=== PATIENT | male | born 1975 | race Caucasian/White ===

== ENCOUNTER 2019-04-14 18:47 | Observation (INO) | payer BC ==
[2019-04-14] MEDS ORDERED: ASPIRIN 81 MG PO STA (19:09)
[2019-04-14] MEDS ORDERED: NITROGLYCERIN OINT 1 INCH/GM PACKET TOPICAL STA (19:09)
--- NOTE | 2019-04-14 19:11 | ED ---
Chest Pain HPI - General Chief Complaint: Chest Pain Stated Complaint: chest and left arm tightness and pain Source: patient Mode of arrival: ambulatory Limitations: no limitations - Related Data Home Medications Medication Instructions Recorded Confirmed Lansoprazole [Prevacid] 30 mg PO DAILY 04/14/19 04/14/19 Allergies Allergy/AdvReac Type Severity Reaction Status Date / Time No Known Allergies Allergy Verified 04/14/19 19:22 Review of Systems ROS Statement: Those systems with pertinent positive or pertinent negative responses have been documented in the HPI. ROS Other: All systems not noted in ROS Statement are negative. Past Medical History Past Medical History: GERD/Reflux History of Any Multi-Drug Resistant Organisms: None Reported Past Surgical History: No Surgical Hx Reported Past Psychological History: No Psychological Hx Reported Smoking Status: Never smoker Past Alcohol Use History: Rare Past Drug Use History: None Reported Course Vital Signs 04/14/19 18:52 Temperature 98.4 F Pulse Rate 75 Respiratory 18 Rate Blood Pressure 147/93 O2 Sat by Pulse 99 Oximetry Disposition Referrals: Yusef Corrales DO [Primary Care Provider] - 1-2 days
--- NOTE | 2019-04-14 19:28 | ED ---
Chest Pain HPI - General Chief Complaint: Chest Pain Stated Complaint: chest and left arm tightness and pain Time Seen by Provider: 04/14/19 19:04 Source: patient Mode of arrival: ambulatory Limitations: no limitations - History of Present Illness Initial Comments: This 43-year-old white male presents with a complaint of some chest pain. He describes it as a bilateral chest pressure which came on last night. He states that it seems radiate into his left biceps region as well as his neck. He denies any shortness of breath. He denies any leg pain or swelling or history of DVT or PE. He denies any known previous cardiac history. He has never had a stress test or heart catheterization. He denies any hypertension or hypercholesterolemia. He does state that he has a strong family history of previous cardiac disease. His 3 uncles apparently had myocardial infarctions and/or stents in their 40s. No other complaints or modifying factors. - Related Data Home Medications Medication Instructions Recorded Confirmed Lansoprazole [Prevacid] 30 mg PO DAILY 04/14/19 04/14/19 Allergies Allergy/AdvReac Type Severity Reaction Status Date / Time No Known Allergies Allergy Verified 04/14/19 19:22 Review of Systems ROS Statement: Those systems with pertinent positive or pertinent negative responses have been documented in the HPI. ROS Other: All systems not noted in ROS Statement are negative. Past Medical History Past Medical History: GERD/Reflux History of Any Multi-Drug Resistant Organisms: None Reported Past Surgical History: No Surgical Hx Reported Past Psychological History: No Psychological Hx Reported Smoking Status: Never smoker Past Alcohol Use History: Rare Past Drug Use History: None Reported General Exam - General Exam Comments Initial Comments: GENERAL: The patient is well nourished and well hydrated. VITAL SIGNS: Heart rate, blood pressure, respiratory rate reviewed as recorded in nurse's notes. EYES: Pupils are round and reactive. Extraocular movements are intact. No conjunctival / lid redness or swelling. ENT: No external evidence of injury, swelling, or ecchymosis. Airway is patent. Throat is clear. NECK: Nontender. No swelling or evidence of injury. No subcutaneous emphysema. Trachea is midline. No thyroid mass. HEART: Regular rate and rhythm. Good peripheral pulses. LUNGS/CHEST: Breath sounds clear and equal bilaterally. No rales, rhonchi, or wheezes. No ecchymosis, subcutaneous emphysema, or tenderness. ABDOMEN: Abdomen soft without tenderness. No palpable masses or organomegaly. No peritoneal signs. No abdominal wall swelling or ecchymosis. EXTREMITIES: No extremity tenderness. Normal muscle tone and function. No thoracolumbar tenderness. NEUROLOGIC: Sensation is grossly intact. Cranial nerve exam reveals face is symmetrical, tongue is midline, speech is clear. SKIN: No abrasions or ecchymosis is noted. No induration or masses noted. PSYCHIATRIC: Alert and oriented. Appropriate behavior and judgment. Limitations: no limitations General appearance: alert, in no apparent distress Course Vital Signs 04/14/19 04/14/19 18:52 19:38 Temperature 98.4 F 97.9 F Pulse Rate 75 68 Respiratory 18 18 Rate Blood Pressure 147/93 131/96 O2 Sat by Pulse 99 96 Oximetry Chest Pain [facility] - MDM The patient was seen and examined. All diagnostics were reviewed. The EKG shows a normal sinus rhythm at a rate of 73. There is no acute ST-T wave changes identified. The NJ intervals 144, QRS duration is 88, and the QTC intervals 427. An IV is established and he is watched on the site monitor. No ectopy is identified. He does receive aspirin orally as well as some Nitropaste. The chest x-ray does not show any acute processes. The laboratories unremarkable with negative troponin. He is not having any chest pain on recheck. It is felt as though he benefit from a short stay admission for further evaluation for his chest pain and to rule out acute coronary syndrome. He is agreeable. Case is discussed with Dr. Corrales and he is agreeable with admission with cardiology to evaluate patient. Disposition Clinical Impression: Chest pain, Unstable angina pectoris Disposition: ADMITTED IP TO THIS HOSP Condition: Fair Is patient prescribed a controlled substance at d/c from ED?: No Time of Disposition: 21:05 Decision Date: 04/14/19 Decision Time: 21:05
[2019-04-14 19:46] LABS: Basophils # (A) 0.1 k/uL (0-0.2); Basophils % (A) 1 %; Eosinophils # (A) 0.3 k/uL (0-0.7); Eosinophils % (A) 3 %; HCT 42.6 % (39.0-53.0); HGB 14.1 gm/dL (13.0-17.5); Lymphocytes # (A) 2.1 k/uL (1.0-4.8); Lymphocytes % (A) 23 %; MCH 28.8 pg (25.0-35.0); MCV 87.3 fL (80.0-100.0); Mean Platelet Volume 7.9; Monocytes # (A) 0.7 k/uL (0-1.0); Monocytes % (A) 8 %; Neutrophils # (A) 5.6 k/uL (1.3-7.7); Neutrophils % (A) 62 %; Platelet Count 268 k/uL (150-450); RBC 4.88 m/uL (4.30-5.90); WBC 9.1 k/uL (3.8-10.6)
--- NOTE | 2019-04-14 19:56 | XR ---
EXAMINATION: XR chest 3V DATE AND TIME: 04/14/2019 7:44 PM CLINICAL INDICATION: PHH; Chest Pain TECHNIQUE: 2 PA and a lateral view COMPARISON: None FINDINGS: The lungs are clear. The pleural spaces are negative. The cardiac silhouette is not enlarged. The remainder of the mediastinal silhouette is unremarkable. The skeletal structures and soft tissues are negative for acute findings. IMPRESSION: NO ACUTE PROCESS.
[2019-04-14 19:58] LABS: Prothrombin Time 10.4 sec (9.0-12.0)
[2019-04-14 20:02] LABS: ALT 37 U/L (21-72); AST 26 U/L (17-59); African American GFR (CKD) >90 (>60 ml/min/1.73 sqM); Albumin 4.3 g/dL (3.5-5.0); Alkaline Phosphatase 83 U/L (38-126); Anion Gap 9 mmol/L; Blood Urea Nitrogen 15 mg/dL (9-20); Calcium 9.4 mg/dL (8.4-10.2); Carbon Dioxide 30 mmol/L (22-30); Chloride 102 mmol/L (98-107); Glucose 96 mg/dL (74-99); Non-African American GFR(CKD) >90 (>60 ml/min/1.73 sqM); Potassium 4.3 mmol/L (3.5-5.1); Sodium 141 mmol/L (137-145); Total Bilirubin 0.3 mg/dL (0.2-1.3); Total Protein 7.5 g/dL (6.3-8.2)
[2019-04-14] MEDS ORDERED: NITROGLYCERIN SL TABS 0.4 MG TAB SUBLINGUAL PRN (21:06)
[2019-04-15] MEDS: NITROGLYCERIN OINT 1 INCH/GM PACKET TOPICAL SCH ×3 (00:14→11:13)
[2019-04-15] MEDS ORDERED: PANTOPRAZOLE 40 MG TABLET PO SCH (07:30)
[2019-04-15 08:19] LABS: Cholesterol 248 mg/dL (<200); HDL Cholesterol 34 mg/dL (40-60); LDL Cholesterol,Calculated 176 mg/dL (0-99); Triglycerides 190 mg/dL (<150)
[2019-04-15] MEDS ORDERED: ENOXAPARIN 40 MG/0.4 ML SYRINGE SQ SCH (09:00)
[2019-04-15] MEDS ORDERED: ASPIRIN 325 MG TAB PO SCH (09:00)
[2019-04-15] MEDS ORDERED: ACETAMINOPHEN TAB 325 MG TAB PO PRN (11:00)
--- NOTE | 2019-04-15 11:54 | ECHOF ---
Referral Reason:cp MEASUREMENTS -------- HEIGHT: 182.9 cm WEIGHT: 131.5 kg BP: 112/70 RVIDd: 2.8 cm (< 3.3) IVSd: 1.2 cm (0.6 - 1.1) LVIDd: 4.7 cm (3.9 - 5.3) LVPWd: 1.0 cm (0.6 - 1.1) IVSs: 1.4 cm LVIDs: 4.2 cm LVPWs: 1.0 cm LA Diam: 3.4 cm (2.7 - 3.8) LAESV Index (A-L): 21.00 ml/m Ao Diam: 3.3 cm (2.0 - 3.7) AV Cusp: 2.3 cm (1.5 - 2.6) LA Diam: 3.8 cm (2.7 - 3.8) MV EXCURSION: 21.866 mm (> 18.000) MV EF SLOPE: 119 mm/s (70 - 150) EPSS: 1.0 cm MV E Yimi: 0.57 m/s MV DecT: 129 ms MV A Yimi: 0.65 m/s MV E/A Ratio: 0.89 RAP: 5.00 mmHg RVSP: 23.28 mmHg FINDINGS -------- Sinus rhythm. Morbid Obesity The left ventricular size is normal. There is mild concentric left ventricular hypertrophy. Overa ll left ventricular systolic function is normal with, an EF between 55 - 60 %. The right ventricle is normal in size. The left atrial size is normal. Normal LA size by volume 22+/-6 ml/m2. The right atrial size is normal. The aortic valve is trileaflet, and appears structurally normal. No aortic stenosis or regurgitation. Mild mitral regurgitation is present. Mild tricuspid regurgitation present. There is no evidence of pulmonary hypertension. The right v entricular systolic pressure, as measured by Doppler, is 23.28mmHg. There is no pulmonic regurgitation present. The aortic root size is normal. There is no pericardial effusion. CONCLUSIONS -------- 1. Morbid Obesity 2. The left ventricular size is normal. 3. There is mild concentric left ventricular hypertrophy. 4. Overall left ventricular systolic function is normal with, an EF between 55 - 60 %. 5. The right ventricle is normal in size. 6. The left atrial size is normal. 7. Normal LA size by volume 22+/-6 ml/m2. 8. The right atrial size is normal. 9. The aortic valve is trileaflet, and appears structurally normal. No aortic stenosis or regurgitati on. 10. Mild mitral regurgitation is present. 11. Mild tricuspid regurgitation present. 12. There is no evidence of pulmonary hypertension. 13. The right ventricular systolic pressure, as measured by Doppler, is 23.28mmHg. 14. There is no pulmonic regurgitation present. 15. The aortic root size is normal. 16. There is no pericardial effusion. FOOT CUTTER: Romana Nava RDCS
--- NOTE | 2019-04-15 12:03 | P.CRDCN ---
<Marquita Bills - Last Filed: 04/15/19 11:48> History of Present Illness History of present illness: This is Marquita Bills PA-C dictating a consult on this patient The patient was interviewed and examined by me as well as by Dr. Barajas Case discussed with Dr. Barajas and he agrees with the plan of care IMPRESSION / ASSESSMENT: Atypical chest discomfort, EKG shows no ST abnormalities, troponins negative Blood Pressure slightly elevated on admission but has stated been stable since LDL elevated at 176, consistent with familial hyper cholesterolemia Former smoker PLAN: Discontinue heparin and nitro Start atorvastatin 40 mg daily with a goal of LDL reduction by 50% to less than 90 Further cardiac workup as an outpatient, follow up with Dr. Barajas/Marquita Bills/Joi Fox HPI Patient is a 43-year-old male with no significant past medical history who presented with complaints of chest discomfort. He describes the discomfort as a pressure that came on gradually throughout the day on Saturday. It radiated to his left arm. He also may have felt a little dizzy and diaphoretic, denies syncope. Denies any associated nausea vomiting or shortness of breath. The discomfort is not exertional. He has never had this discomfort before. Does occasionally get acid reflux and states the symptoms are different than his acid reflux symptoms. He has a significant family history of heart disease in his uncle is so he came in for evaluation. Upon presentation his pressure was elevated at 147/93, pulse was 75. Troponins and d-dimer were negative. EKG showed no ST changes. Patient seen and examined resting comfortably in bed. States laying down and seemed to have relieved his symptoms. Still has occasional chest discomfort that comes and goes. 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 EXAMINATION: Temperature 98.2F, pulse 71, respirations 17, blood pressure 121/81, oxygen saturation 91% on room air Patient seen and examined resting comfortably in bed, no acute distress Lungs clear to auscultation bilaterally Heart is regular, normal S1-S2, no murmurs appreciated No elevated JVD noted No lower extremity edema Abdomen soft and nontender REVIEW OF LABS, ECG & MEDICAL DATA WBC 9.1, hemoglobin 14.1, potassium 4.3, BUN 51, creatinine 1.01, magnesium 2.0 D dimer negative Troponins negative 3 Total cholesterol 248, triglycerides 190, LDL 176, HDL 34 Chest x-ray negative for acute process EKG showed sinus rhythm with normal CO, narrow QRS, no ST-T abnormalities Echocardiogram showed normal LV size, mild concentric LVH, EF 55-60%, no significant valvular abnormalities Past Medical History Past Medical History: GERD/Reflux History of Any Multi-Drug Resistant Organisms: None Reported Past Surgical History: No Surgical Hx Reported Smoking Status: Former smoker - Past Family History Father Family Medical History: No Reported History Mother Family Medical History: Diabetes Mellitus Medications and Allergies Home Medications Medication Instructions Recorded Confirmed Type Lansoprazole [Prevacid] 30 mg PO DAILY 04/14/19 History Atorvastatin [Lipitor] 40 mg PO HS #30 tab 04/15/19 Rx Allergies Allergy/AdvReac Type Severity Reaction Status Date / Time No Known Allergies Allergy Verified 04/14/19 22:30 Physical Exam Vitals: Vital Signs Temp Pulse Pulse Resp BP BP BP 04/15/19 08:00 98.2 F 71 17 121/81 04/15/19 04:00 18 04/15/19 03:36 97.5 F L 75 18 112/70 04/15/19 00:00 18 04/14/19 22:29 98.2 F 74 18 131/89 04/14/19 22:15 98 F 68 18 98/70 04/14/19 21:44 98 F 70 18 92/66 04/14/19 19:38 97.9 F 68 18 131/96 04/14/19 18:52 98.4 F 75 18 147/93 Pulse Ox 04/15/19 08:00 91 L 04/15/19 04:00 04/15/19 03:36 96 04/15/19 00:00 04/14/19 22:29 96 04/14/19 22:15 100 04/14/19 21:44 96 04/14/19 19:38 96 04/14/19 18:52 99 Intake and Output 08/06/19 08/07/19 08/07/19 22:59 06:59 14:59 Other: # Voids 1 1 Weight 131.542 kg Results 04/14/19 19:19 04/14/19 19:19 Cardiac Enzymes 04/14/19 04/14/19 04/15/19 Range/Units 19:19 19:19 01:22 AST 26 (17-59) U/L Troponin I <0.012 <0.012 (0.000-0.034) ng/mL 04/15/19 Range/Units 07:18 AST (17-59) U/L Troponin I <0.012 (0.000-0.034) ng/mL Coagulation 04/14/19 Range/Units 19: PT 10.4 (9.0-12.0) sec APTT 25.0 (22.0-30.0) sec Lipids 04/15/19 Range/Units 07:18 Triglycerides 190 H (<150) mg/dL Cholesterol 248 H (<200) mg/dL HDL Cholesterol 34 L (40-60) mg/dL CBC 04/14/19 Range/Units 19: WBC 9.1 (3.8-10.6) k/uL RBC 4.88 (4.30-5.90) m/uL Hgb 14.1 (13.0-17.5) gm/dL Hct 42.6 (39.0-53.0) % Plt Count 268 (150-450) k/uL Comprehensive Metabolic Panel 04/14/19 Range/Units 19:19 Sodium 141 (137-145) mmol/L Potassium 4.3 (3.5-5.1) mmol/L Chloride 102 (98-107) mmol/L Carbon Dioxide 30 (22-30) mmol/L BUN 15 (9-20) mg/dL Creatinine 1.01 (0.66-1.25) mg/dL Glucose 96 (74-99) mg/dL Calcium 9.4 (8.4-10.2) mg/dL AST 26 (17-59) U/L ALT 37 (21-72) U/L Alkaline Phosphatase 83 (38-126) U/L Total Protein 7.5 (6.3-8.2) g/dL Albumin 4.3 (3.5-5.0) g/dL Current Medications Generic Name Dose Route Start Last Admin Trade Name [place] PRN Reason Stop Dose Admin Acetaminophen 325 mg 04/15/19 11:00 04/15/19 11:08 Tylenol Tab PO 325 mg Q6HR PRN Administration Fever and/ or Pain Aspirin 325 mg 04/15/19 09:00 04/15/19 10:54 Aspirin PO 325 mg DAILY TELMA Administration Enoxaparin Sodium 40 mg 04/15/19 09:00 04/15/19 10:54 Lovenox SQ 40 mg DAILY TELMA Administration Nitroglycerin 1 inch 04/15/19 00:00 04/15/19 11:13 Nitro-Bid Oint TOPICAL Not Given Q6HR [facility] Nitroglycerin 0.4 mg 04/14/19 21:06 Nitrostat SUBLINGUAL Q5M PRN Chest Pain Pantoprazole Sodium 40 mg 04/15/19 07:30 04/15/19 10:54 Protonix PO 40 mg AC-BRKFST TELMA Administration Intake and Output 04/14/19 04/15/19 04/15/19 22:59 06:59 14:59 Other: # Voids 1 1 Weight 131.542 kg 04/14/19 19:19 04/14/19 19:19 <Morgan Barajas - Last Filed: 04/15/19 13:01> History of Present Illness History of present illness: Patient interviewed and examined Atypical chest discomfort off and on nonexertional, no myocardial injury, EKG normal I made him brisk walk up and down the hallways. He had no chest pain. I made him jog and he had no chest pain Increased BMI with central obesity Diet therapy for weight reduction discussed Low carbohydrate diet Y states he snores a lot but occasionally does grunt but is not sure if he stops breathing line sleep apnea assessment as an outpatient 2-D echo and Doppler studies normal Outpatient cardiac workup LDL 176 Strong family history of coronary artery disease Start atorvastatin 40 mrem by mouth daily Detailed discussion regarding coronary artery disease and myocardial infarction risks We will see him again in about 2 weeks May go home today Physical Exam Vitals: Vital Signs Temp Pulse Pulse Resp BP BP BP 04/15/19 12:00 97.7 F 66 16 137/99 04/15/19 08:00 98.2 F 71 17 121/81 08/07/19 04:00 18 04/15/19 03:36 97.5 F L 75 18 112/70 04/15/19 00:00 18 04/14/19 22:29 98.2 F 74 18 131/89 04/14/19 22:15 98 F 68 18 98/70 04/14/19 21:44 98 F 70 18 92/66 04/14/19 19:38 97.9 F 68 18 131/96 04/14/19 18:52 98.4 F 75 18 147/93 Pulse Ox 04/15/19 12:00 97 04/15/19 08:00 91 L 04/15/19 04:00 04/15/19 03:36 96 04/15/19 00:00 04/14/19 22:29 96 04/14/19 22:15 100 04/14/19 21:44 96 04/14/19 19:38 96 04/14/19 18:52 99 Intake and Output 04/14/19 04/15/19 04/15/19 22:59 06:59 14:59 Other: # Voids 1 1 Weight 131.542 kg Results 04/14/19 19:19 04/14/19 19:19 Cardiac Enzymes 04/14/19 04/14/19 04/15/19 Range/Units 19:19 19:19 01:22 AST 26 (17-59) U/L Troponin I <0.012 <0.012 (0.000-0.034) ng/mL 04/15/19 Range/Units 07:18 AST (17-59) U/L Troponin I <0.012 (0.000-0.034) ng/mL Coagulation 04/14/19 Range/Units 19:19 PT 10.4 (9.0-12.0) sec APTT 25.0 (22.0-30.0) sec Lipids 04/15/19 Range/Units 07:18 Triglycerides 190 H (<150) mg/dL Cholesterol 248 H (<200) mg/dL HDL Cholesterol 34 L (40-60) mg/dL CBC 04/14/19 Range/Units 19:19 WBC 9.1 (3.8-10.6) k/uL RBC 4.88 (4.30-5.90) m/uL Hgb 14.1 (13.0-17.5) gm/dL Hct 42.6 (39.0-53.0) % Plt Count 268 (150-450) k/uL Comprehensive Metabolic Panel 04/14/19 Range/Units 19:19 Sodium 141 (137-145) mmol/L Potassium 4.3 (3.5-5.1) mmol/L Chloride 102 (98-107) mmol/L Carbon Dioxide 30 (22-30) mmol/L BUN 15 (9-20) mg/dL Creatinine 1.01 (0.66-1.25) mg/dL Glucose 96 (74-99) mg/dL Calcium 9.4 (8.4-10.2) mg/dL AST 26 (17-59) U/L ALT 37 (21-72) U/L Alkaline Phosphatase 83 (38-126) U/L Total Protein 7.5 (6.3-8.2) g/dL Albumin 4.3 (3.5-5.0) g/dL Current Medications Generic Name Dose Route Start Last Admin Trade Name Freq PRN Reason Stop Dose Admin Acetaminophen 325 mg 04/15/19 11:00 04/15/19 11:08 Tylenol Tab PO 325 mg Q6HR PRN Administration Fever and/ or Pain Aspirin 325 mg 04/15/19 09:00 04/15/19 10:54 Aspirin PO 325 mg DAILY [facility] Administration Atorvastatin Calcium 40 mg 04/15/19 21:00 Lipitor PO HS [facility] Enoxaparin Sodium 40 mg 04/15/19 09:00 04/15/19 10:54 Lovenox SQ 40 mg DAILY [facility] Administration Nitroglycerin 1 inch 04/15/19 00:00 04/15/19 11:13 Nitro-Bid Oint TOPICAL Not Given Q6HR [facility] Nitroglycerin 0.4 mg 04/14/19 21:06 Nitrostat SUBLINGUAL Q5M PRN Chest Pain Pantoprazole Sodium 40 mg 04/15/19 07:30 04/15/19 10:54 Protonix PO 40 mg AC-BRKFST [facility] Administration Intake and Output 04/14/19 04/15/19 04/15/19 22:59 06:59 14:59 Other: # Voids 1 1 Weight 131.542 kg 04/14/19 19:19 04/14/19 19:19
[2019-04-15 12:13] VITALS: BP 137/99; PULSE 66; RESP 16; TEMP 97.7
--- NOTE | 2019-04-15 12:41 | P.HPIM ---
History of Present Illness H&P Date: 04/15/19 Chief Complaint: Chest pain History and Physical & Discharge Summary. Discharge Medication List Lansoprazole [Prevacid] 30 mg PO DAILY 04/14/19 [History] Atorvastatin [Lipitor] 40 mg PO HS #30 tab 04/15/19 [Rx] Hospital course: This is a 43-year-old gentleman with history of gastroesophageal reflux disease, former smoker present to the ER with left-sided chest pain, occurred at rest, nonreproducible, nonradiating, accompanied by dizziness and diaphoresis. Family history of CAD. Denies nausea, vomiting, indigestion, cough,shortness of breath, or congestion. EKG reported sinus rhythm with no ST-T abnormalities. Echocardiogram reported normal LV function, EF 55-60%. Troponins negative 3. Chest x-ray nonacute. Afebrile, WBC 9.1. Hemoglobin 14.1, potassium 4.3, magnesium 2. D-dimer negative. Total cholesterol 248, triglycerides 190, LDL 176, HDL 34. Received aspirin and Nitropaste in the ER. Admitted for observation. Cardiology consulted. Review of Systems ROS Statement: Those systems with pertinent positive or pertinent negative responses have been documented in the HPI. ROS Other: All systems not noted in ROS Statement are negative. Past Medical History Past Medical History: GERD/Reflux History of Any Multi-Drug Resistant Organisms: None Reported Past Surgical History: No Surgical Hx Reported Smoking Status: Former smoker - Past Family History Father Family Medical History: No Reported History Mother Family Medical History: Diabetes Mellitus Medications and Allergies Home Medications Medication Instructions Recorded Confirmed Type Lansoprazole [Prevacid] 30 mg PO DAILY 04/14/19 History Atorvastatin [Lipitor] 40 mg PO HS #30 tab 04/15/19 Rx Allergies Allergy/AdvReac Type Severity Reaction Status Date / Time No Known Allergies Allergy Verified 04/14/19 22:30 Physical Exam Vitals: Vital Signs Temp Pulse Pulse Resp BP BP BP 04/15/19 12:00 97.7 F 66 16 137/99 04/15/19 08:00 98.2 F 71 17 121/81 04/15/19 04:00 18 04/15/19 03:36 97.5 F L 75 18 112/70 04/15/19 00:00 18 04/14/19 22:29 98.2 F 74 18 131/89 04/14/19 22:15 98 F 68 18 98/70 04/14/19 21:44 98 F 70 18 92/66 04/14/19 19:38 97.9 F 68 18 131/96 04/14/19 18:52 98.4 F 75 18 147/93 Pulse Ox 04/15/19 12:00 97 04/15/19 08:00 91 L 04/15/19 04:00 04/15/19 03:36 96 04/15/19 00:00 04/14/19 22:29 96 04/14/19 22:15 100 04/14/19 21:44 96 04/14/19 19:38 96 04/14/19 18:52 99 Intake and Output 04/14/19 04/15/19 04/15/19 22:59 06:59 14:59 Other: # Voids 1 1 Weight 131.542 kg PHYSICAL EXAM: VITAL SIGNS: As above GENERAL: Sitting up in chair, no acute distress HEENT: Conjunctivae normal. eyes normal. NECK: No JVD. No thyroid enlargement. No LNs CARDIOVASCULAR: S1, S2 regular. No murmur RESPIRATION: Breath sounds diminished in the bases. No rhonchi or crackles. No wheezing ABDOMEN: Soft, nontender . No guarding. no masses palpable. No ascites, No hepatosplenomegaly.Bowel sounds heard. LEGS: No edema. no swelling PSYCHIATRY: Alert and oriented X3, mood and affect normal. NERVOUS SYSTEM: Cranial N 2-12 grossly normal. Moves all 4 limbs. Diffuse weakness No focal deficits. Strength and sensation grossly intact.. Skin: no lesions, no rash Joints: No active swelling. No inflammation. Lymphatic system. No LN neck axilla or groin. Results CBC & Chem 7: 04/14/19 19:19 04/14/19 19:19 Labs: Abnormal Lab Results - Last 24 Hours (Table) 04/15/19 Range/Units 07:18 Triglycerides 190 H (<150) mg/dL Cholesterol 248 H (<200) mg/dL LDL Cholesterol, Calc 176 H (0-99) mg/dL HDL Cholesterol 34 L (40-60) mg/dL Thrombosis Risk Factor Assmnt - Choose All That Apply Each Factor Represents 1 point: Age 41-60 years Thrombosis Risk Factor Assessment Total Risk Factor Score: 1 Thrombosis Risk Factor Assessment Level: Low Risk Assessment and Plan Assessment: -Acute chest pain, troponin is negative 3, EKG normal sinus rhythm with no ST abnormalities, atypical as per cardiology -Hypercholesterolemia -Family history of CAD -Gastroesophageal reflux disease -History of prior nicotine dependence, 1 pack per day 20 years, quit 9 years ago. Plan: Continue current medication regime ,monitoring and symptomatic treatment. Will hold meds have been reviewed and resumed. Evaluated by cardiology, statin added to med regime with further workup outpatient recommended. Significant clinical improvement. Denies lightheadedness dizziness or focal deficits. Denies chest pain, palpitations or shortness of breath. Cleared by cardiology for discharge. Patient is being discharged home in a stable condition with guarded prognosis. The impression and plan of care has been dictated as directed. : I performed a history and examination of this patient, discussed the same with the dictator. I agree with the dictator's note ,documented as a scribe. Any additional findings or plans will be noted. Time taken: 35 minutes
[2019-04-15 20:19] LABS: Hemoglobin A1C 6.1 % (4.0-6.0)
[2019-04-15] MEDS ORDERED: ATORVASTATIN 40 MG TAB PO SCH (21:00)
== END 2019-04-15 14:10 ==
LOC: EC 18:47 → 1SOBS 21:09
PROVIDERS: ADMIT Family Medicine; ATTEND Family Medicine
DX: R07.89 Other chest pain (principal); M79.602 Pain in left arm; R06.83 Snoring; R03.0 Elevated blood-pressure reading, without diagnosis of hypertension; E78.00 Pure hypercholesterolemia, unspecified; K21.9 Gastro-esophageal reflux disease without esophagitis; E66.9 Obesity, unspecified; Z68.39 Body mass index [BMI] 39.0-39.9, adult; Z87.891 Personal history of nicotine dependence; Z79.899 Other long term (current) drug therapy; Z82.49 Family history of ischemic heart disease and other diseases of the circulatory system; Z83.3 Family history of diabetes mellitus
CPT/HCPCS: 96372; 99285; 36415; 93005; 93306; 85379; 80061; 80053; 83735; 84484 ×2; 85025; 85610; 85730; 83036; 71046; G0378 ×2; J1650

== ENCOUNTER → 2019-04-30 | Outpatient (CLI) | payer BC ==
[2019-04-30 12:09] LABS: LDL Cholesterol,Calculated 72.2 mg/dL (0.0-131.0); VLDL Calculation 37.8 mg/dL (5.00-40.00)
== END | disposition home or self-care (01) ==
LOC: LABWHC1 06:32
PROVIDERS: ATTEND Internal Medicine Clinical Cardiac Electrophysiology
DX: E78.01 Familial hypercholesterolemia (principal)
CPT/HCPCS: 36415; 80061

== ENCOUNTER → 2019-05-07 | Outpatient (CLI) | payer BC ==
--- NOTE | 2019-05-07 23:26 | CONS ---
CONSULTATION DATE OF SERVICE: 05/07/2019 This patient is a 44-year-old gentleman who has been evaluated in the sleep center for possible obstructive sleep apnea-hypopnea syndrome. HISTORY OF PRESENT ILLNESS/SLEEP-WAKE EVALUATION: Patient's usual sleep schedule on working days is from 10 p.m. to 5 or 6 a.m. and on weekends from 11 or 12 midnight until 8 or 9 a.m. No problems with falling asleep. No TV in bedroom. He usually sleeps on the side position with snoring. In the morning, the patient feels sleepy. [place] Sleepiness Scale is increased at 15. He may take no naps or he may take one nap at 1 p.m. on weekdays or weekends. No history of hypnagogic hallucinations, sleep paralysis or cataplexy. PAST MEDICAL HISTORY: 1. Hyperlipidemia. 2. Episode of angina, at present under evaluation by construction trench digger. 3. Positive history of acid reflux. MEDICATIONS: Lipitor and Prevacid. PAST SURGICAL HISTORY: None. SOCIAL HISTORY: Positive for smoking for about 18 pack/years; quit about 9 years ago. Alcohol consumption up to 2 times per month. FAMILY HISTORY: Hyperlipidemia, snoring, diabetes, acid reflux. REVIEW OF SYSTEMS: Snoring, sleepiness. PHYSICAL EXAMINATION: GENERAL: A pleasant gentleman without distress. VITAL SIGNS: BP 138/84, HR 70, RR 16, height 5 feet 11-1/2 inches, weight 277 pounds, body mass index 38, temperature 98.3, oxygen saturation at room air 97%. HEENT: PERRLA, EOMI. Evaluation of oropharynx showed tongue protrudes midline. Extremely low position of soft palate. Mallampati IV. Some restriction of nasal breathing. NECK: Supple. No JVD. Thyroid is not palpable. Wide neck; 17-1/2 inches in circumference. LUNGS: Clear to percussion and to auscultation. Good air exchange. No wheezing or rhonchi. HEART: S1, S2 regular. No murmurs, gallops or rubs. ABDOMEN: Slightly obese. EXTREMITIES: No clubbing or cyanosis. DRAPERY MAKER: Awake, alert, and oriented X3. Cranial nerves 2 to 7 intact. There is no fasciculation or atrophy. noted. No focal deficits observed. IMPRESSION: 1. Snoring, extremely low position of soft palate, Mallampati IV, wide neck at 17-1/2 inches in circumference, sleepiness by results of [place] Sleepiness Scale of 15; obstructive sleep apnea-hypopnea syndrome. 2. Obesity; body mass index 38. 3. Acid reflux. 4. Episode of angina, at present under evaluation by construction trench digger. 5. History of acid reflux. 6. 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. PLAN: 1. Home sleep apnea test for evaluation of patient's breathing during sleep. 2. CPAP/BiPAP titration if sleep study confirms obstructive sleep apnea-hypopnea syndrome. 3. Preferable position during sleep on the side. 4. No driving if patient feels any sleepiness. 5. I will see patient for follow up visit to explain results of testing and following plan. Thank you very much for referring this patient for consultation. Sincerely, Alfonzo Rodas MD, PhD, FAASM Diplomat of [place] [employer] [place] [employer] Echocardiograph Tech of [facility] MMODL / IJN: [id number] /
== END | disposition home or self-care (01) ==
LOC: SLEEP 15:05
PROVIDERS: ATTEND Internal Medicine
DX: G47.33 Obstructive sleep apnea (adult) (pediatric) (principal); E66.9 Obesity, unspecified; K21.9 Gastro-esophageal reflux disease without esophagitis; I20.9 Angina pectoris, unspecified; E78.5 Hyperlipidemia, unspecified; Z68.38 Body mass index [BMI] 38.0-38.9, adult; Z87.891 Personal history of nicotine dependence; Z79.899 Other long term (current) drug therapy
CPT/HCPCS: 99211

== ENCOUNTER → 2019-10-01 | Outpatient (CLI) | payer BC ==
--- NOTE | 2019-10-01 17:42 | PN ---
PROGRESS NOTE DATE OF SERVICE: 10/01/2019 This patient is a 44-year-old gentleman who has been followed in Sleep Center for treatment of obstructive sleep apnea-hypopnea syndrome. Recently the patient had a home sleep apnea test which showed severe sleep apnea, then he had CPAP titration and subsequently received a CPAP unit. I discussed results of sleep studies with the patient in detail. He is able to use CPAP equipment every night for the whole night without significant problems with the mask or pressure. He feels better with the usage of the machine. [place] Sleepiness Scale today is 10. I checked his CPAP unit. CPAP pressure is 13 cm of water. Usage is 30/30 nights and 28/30 nights for more than 4 hours with average usage 6.4 hours per night. Leak is 32 L/minute, which is slightly high but acceptable for the full-face mask. Apnea-hypopnea index is 4.2, which is in normal range. MEDICATIONS: Prevacid, Lipitor. PHYSICAL EXAMINATION: GENERAL: A pleasant patient in no distress. VITAL SIGNS: BP 123/70, HR 92, RR 14, weight 304.8, temperature 98.2, oxygen saturation at room air 96%. HEENT: PERRLA, EOMI. Evaluation of oropharynx showed tongue protrudes midline. Extremely low position of soft palate. Mallampati IV. NECK: Supple. No JVD. Thyroid is not palpable. LUNGS: Clear to percussion and to auscultation. Good air exchange. No wheezing or rhonchi. HEART: S1, S2 regular. No murmurs, gallops or rubs. ABDOMEN: Slightly obese. EXTREMITIES: No clubbing or cyanosis. POLITICAL SCIENCE INSTRUCTOR: Awake, alert, and oriented X3. Cranial nerves 2 to 7 intact. There is no fasciculation or atrophy. noted. No focal deficits observed. IMPRESSION: 1. Severe obstructive sleep apnea-hypopnea syndrome; apnea-hypopnea index 73 with oxygen desaturation to 73% by results of home sleep apnea test. The patient has demonstrated great compliance with treatment, benefitting from treatment; normalization of respiration on treatment with CPAP. No snoring with the machine. 2. Obesity. 3. Acid reflux. 4. History of episodes of angina, under evaluation by a research aide. No recent episodes of chest pain. 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 PLAN: 1. Patient will continue to use CPAP equipment every night for the whole night. 2. Losing weight. 3. Sleep hygiene with regular time in bed for at least 7-1/2 to 8 hours. 4. I will maintain all necessary prescriptions for CPAP supplies, including heated tube, full-face Simplus medium-sized mask. Possibly mask needs to be changed to large size. 5. Precautions related to driving. No driving if feeling any sleepiness. Patient is aware of civil and criminal liability for unsafe driving. Thank you very much for allowing me to participate in the management of your patient. Sincerely, Alfonzo Rodas MD, PhD, FAASM Diplomat of [place] [employer] [place] [employer] Automobile Drivers of [facility] [place] MMODL / IJN: [id number] /
== END | disposition home or self-care (01) ==
LOC: SLEEP 15:02
PROVIDERS: ATTEND Internal Medicine
DX: G47.33 Obstructive sleep apnea (adult) (pediatric) (principal); E66.9 Obesity, unspecified; K21.9 Gastro-esophageal reflux disease without esophagitis; Z86.79 Personal history of other diseases of the circulatory system; Z99.89 Dependence on other enabling machines and devices; Z79.899 Other long term (current) drug therapy